=== PATIENT | female | born 1980 | race Caucasian/White ===

== ENCOUNTER 2019-07-10 21:03 | Emergency (ER) | payer SELFPAY ==
[~2019-07-10] VITALS: Ht 162.6 cm; Wt 63.5 kg
[2019-07-10] MEDS ORDERED: ONDANSETRON HCL/PF 4 MG/2 ML VIAL ONE (22:07)
[2019-07-10] MEDS ORDERED: MORPHINE SULFATE INJ 4 MG/ML DISP.SYRIN ONE (22:09)
--- NOTE | 2019-07-10 22:17 | NUR ---
PATIENT CAME TO ER BED 1 C/O RIGHT FLANK PAIN FOR 3x DAYS. PATIENT STATES THAT SHE HASN'T BEEN DRINKING FLUIDS. AAOX4. NO SOB. BREATHING EVENLY AND UNLABORED ON ROOM AIR. CONNECTED TO MONITOR.
--- NOTE | 2019-07-10 22:19 | NUR ---
BLOOD DRAW AND SENT TO LAB
[2019-07-10 22:20] LABS: BASOPHILS % (AUTO) 0.4 % (0.0-2.0); EOSINOPHILS % (AUTO) 1.3 % (0.0-6.0); HEMATOCRIT 38 % (33-45); HEMOGLOBIN 13.1 g/dL (11.5-14.8); LYMPHOCYTES # (AUTO) 1.1 /CMM (0.8-4.8); LYMPHOCYTES % (AUTO) 19.3 % (20.0-44.0); MEAN CORPUSCULAR HGB CONC 35 g/dl (31.0-36.0); MEAN CORPUSCULAR VOLUME 97 fL (82-100); MONOCYTES # (AUTO) 0.5 /CMM (0.1-1.30); MONOCYTES % (AUTO) 9.2 % (2.0-12.0); NEUTROPHILS # (AUTO) 4.1 /CMM (1.8-8.9); NEUTROPHILS % (AUTO) 69.8 % (43.0-81.0); PLATELET COUNT (AUTO) 189 /CMM (150-450); RED BLOOD CELL COUNT(AUTO) 3.89 MIL/uL (4.0-5.2); WHITE BLOOD COUNT (AUTO) 5.8 K/uL (4.3-11.0)
[2019-07-10] MEDS: IV NS 0.9% 1,000 ML BAG IV ONE (22:22)
[2019-07-10] MEDS: MORPHINE SULFATE INJ 2 MG/ML DISP.SYRIN IV ONE (22:22)
[2019-07-10] MEDS: ONDANSETRON HCL/PF 4 MG/2 ML VIAL IVP ONE (22:22)
[2019-07-10 22:28] LABS: CALCIUM, SERUM 9.2 mg/dL (8.5-10.1); CREATININE 0.7 mg/dL (0.6-1.3); POTASSIUM 3.9 mmol/L (3.5-5.1)
[2019-07-10 22:34] LABS: ALBUMIN 3.9 g/dL (3.4-5.0); BILIRUBIN,TOTAL 0.2 mg/dL (0.2-1.0); TOTAL PROTEIN, SERUM 7.3 g/dL (6.4-8.2)
[2019-07-10] MEDS ORDERED: HYDROMORPHONE 1 MG/1 ML DISP.SYRIN ONE (23:14)
[2019-07-10] MEDS: HYDROMORPHONE INJ 0.5 MG/0.5 ML SYRINGE IV ONE (23:21)
[2019-07-10 23:31] LABS: APPEARANCE,URINE Clear (CLEAR); BILIRUBIN,URINE Negative (NEGATIVE); BLOOD, URINE Moderate Ery/uL (NEGATIVE); COLOR,URINE Yellow (YELLOW); KETONES,URINE Negative (NEGATIVE); LEUKOCYTE ESTERASE ,URINE Small (NEGATIVE); NITRITE, URINE Negative (NEGATIVE); PH,URINE 5.5 (5.0-8.0); PROTEIN,URINE Negative (NEGATIVE); UGLUCOSE Negative (NEGATIVE); UROBILINOGEN,URINE 0.2 EU/dL (0.2)
[2019-07-11 00:01] LABS: BACTERIA,URINE Many /HPF (None Seen); WBC,URINE 0-2 /HPF (0-3)
[2019-07-11 00:02] LABS: SQUAMOUS EPITHELIAL CELL,UR Many /HPF (None Seen)
--- NOTE | 2019-07-11 00:18 | NUR ---
TAKEN TO CT
--- NOTE | 2019-07-11 00:26 | NUR ---
RETURNED FROM CT
[2019-07-11] MEDS ORDERED: CIPROFLOXACIN HCL 500 MG TABLET ONE (00:35)
[2019-07-11] MEDS: CIPROFLOXACIN HCL 250 MG TABLET PO ONE (00:40)
[2019-07-11 00:55] VITALS: BP 132/108
[2019-07-11] MEDS ORDERED: HYDROMORPHONE 1 MG/1 ML DISP.SYRIN ONE (00:56)
[2019-07-11] MEDS ORDERED: ONDANSETRON HCL/PF 4 MG/2 ML VIAL ONE (00:56)
[2019-07-11] MEDS: HYDROMORPHONE INJ 0.5 MG/0.5 ML SYRINGE IV ONE (01:00)
[2019-07-11] MEDS: ONDANSETRON HCL/PF 4 MG/2 ML VIAL IV ONE (01:00)
--- NOTE | 2019-07-11 01:55 | NUR ---
[facility] CALLED FOR CT ABDOMEN W/O CONTRAST
--- NOTE | 2019-07-11 02:02 | NUR ---
PATIENT LEFT THE FACILITY WITHOUT DISCHARGE INSTRUCTIONS.
--- NOTE | 2019-07-11 02:25 | NUR ---
CALLED [facility] REGARDING PATIENT ELOPEMENT W/ IV SALINE LOCK IN PLACE. INCIDENT #[id number]
== END 2019-07-11 02:35 | disposition home or self-care (01) ==
LOC: ER 21:07
DX: R10.31 Right lower quadrant pain (principal); R11.10 Vomiting, unspecified; Z90.89 Acquired absence of other organs; Z88.6 Allergy status to analgesic agent; Z88.0 Allergy status to penicillin
CPT/HCPCS: 36415; 74176; 80048; 80076; 81001; 83690; 84703; 85025; 87086; 96361; 96374; 96375; 96376; 99285; J1170 ×2; J2270; J2405 ×2; J7030; 81000-TC